=== PATIENT | male | born 1985 | race American Indian/Alaskan Native ===

== ENCOUNTER 2016-07-22 19:50 | Emergency (ER) | payer SELFPAY ==
--- NOTE | 2016-07-22 21:25 | Emergency Department Report ---
Chief Complaint: Abdominal Pain Stated Complaint: BOIL ON ABDOMEN Time Seen by Provider: 07/22/16 21:19 - HPI History of Present Illness: Patient presents with "bump" on his abdomen, present 2 days ago and getting larger. Admits to history of abscess on his abdomen in the past. Denies n/v/d , urinary symptoms. - ROS Review of Systems: All other systems unremarkable except documentation in HPI - Exam Vital Signs: Vital Signs 07/22/16 21:07 Temperature 98.7 F Pulse Rate 98 H Blood Pressure 111/77 O2 Sat by Pulse 98 Oximetry Physical Exam: Gen: Male no apparent distress noted, ambulatory. Cardiovascular: Heart sounds present S1-S2, no murmur, gallop, edema or ectopy noted, 2+ pulses upper and lower extremities Respiratory: Chest symmetry with respirations, lungs clear to auscultate upper and lower lobes, respirations even and unlabored, no rales, rhonchi, crackles noted. Abdomen: bowel sounds present, soft, nondistended, nontender, no rigidity, guarding or rebound tenderness Skin: Red, tender, abscess approximately 1 inch in diameter, nonfluctuant Psych: AxOx3, answers questions appropriately, mood full range, affect normal, normal speech and tone. MSE screening note: Focused history and physical exam performed. Due to findings the following was ordered: ED Medical Decision Making - Medical Decision Making Seen by provider, will go to fast track. ED Disposition for MSE Condition: Stable
--- NOTE | 2016-07-22 23:19 | Emergency Department Report ---
- General Chief complaint: Abdominal Pain Stated complaint: BOIL ON ABDOMEN Time Seen by Provider: 07/22/16 21:19 Source: patient, family Mode of arrival: Ambulatory Limitations: No Limitations - History of Present Illness Initial comments: Patient here for that he is in pain from boil on his stomach that has been there for 3 days. Denies any fever or chills. Pain 5 out of 10 only with touching. Denies any nausea vomiting or diarrhea. Denies any urinary burning frequency or urgency. No uine-ozp-xsoplns medication use. MD complaint: abscess/boil Onset/Timin -: days(s) Tetanus Up to Date: yes Severity: mild Severity scale (0 -10): 5 Quality: other (feels sore) Improves with: immobilization Worsens with: palpation Context: none, other (unknown) Associated symptoms: denies other symptoms Treatments Prior to Arrival: none - Related Data Previous Rx's Medication Instructions Recorded Last Taken Type Acetaminophen/Codeine [Tylenol #3] 1 tab PO Q8H PRN #12 tablet 07/23/16 Unknown Rx Sulfamethoxazole/Trimethoprim 1 each PO BID #20 tablet 07/23/16 Unknown Rx [Bactrim DS TAB] Allergies Allergy/AdvReac Type Severity Reaction Status Date / Time No Known Allergies Allergy Verified 07/22/16 21:06 Abscess Boil HPI - HPI Chief Complaint: Abdominal Pain Stated Complaint: BOIL ON ABDOMEN Time Seen by Provider: 07/22/16 21:19 Home Medications: Previous Rx's Medication Instructions Recorded Last Taken Type Acetaminophen/Codeine [Tylenol #3] 1 tab PO Q8H PRN #12 tablet 07/23/16 Unknown Rx Sulfamethoxazole/Trimethoprim 1 each PO BID #20 tablet 07/23/16 Unknown Rx [Bactrim DS TAB] Allergies/Adverse Reactions: Allergies Allergy/AdvReac Type Severity Reaction Status Date / Time No Known Allergies Allergy Verified 07/22/16 21:06 ED Review of Systems ROS: Stated complaint: BOIL ON ABDOMEN Other details as noted in HPI Comment: All other systems reviewed and negative Constitutional: denies: chills, fever Respiratory: no symptoms reported Cardiovascular: denies: chest pain, palpitations, edema, syncope Gastrointestinal: denies: abdominal pain, nausea, vomiting, diarrhea Genitourinary: denies: urgency, dysuria, frequency, hematuria, discharge, testicular pain, testicular mass Musculoskeletal: denies: back pain, arthralgia Skin: other (boil to abdomen) Neurological: denies: headache ED Past Medical Hx - Past Medical History Previous Medical History?: No - Surgical History Past Surgical History?: Yes Additional Surgical History: hernia removal - Family History Family history: no significant - Social History Smoking Status: Current Every Day Smoker Substance Use Type: Alcohol - Medications Home Medications: Home Medications Medication Instructions Recorded Confirmed Last Taken Type Acetaminophen/Codeine [Tylenol #3] 1 tab PO Q8H PRN #12 tablet 07/23/16 Unknown Rx Sulfamethoxazole/Trimethoprim 1 each PO BID #20 tablet 07/23/16 Unknown Rx [Bactrim DS TAB] ED Physical Exam - General Limitations: No Limitations General appearance: alert, in no apparent distress - Head Head exam: Present: atraumatic, normocephalic, normal inspection - Eye Eye exam: Present: normal appearance, PERRL, EOMI Pupils: Present: normal accommodation - Neck Neck exam: Present: normal inspection, full ROM. Absent: tenderness, meningismus, lymphadenopathy - Respiratory Respiratory exam: Present: normal lung sounds bilaterally. Absent: respiratory distress - Cardiovascular Cardiovascular Exam: Present: regular rate, normal rhythm, normal heart sounds - GI/Abdominal GI/Abdominal exam: Present: soft, tenderness (tenderness to palpate one by one area of erythema above the umbilicus), normal bowel sounds. Absent: distended, guarding, rebound, rigid - Extremities Exam Extremities exam: Present: normal inspection, full ROM, normal capillary refill. Absent: tenderness, pedal edema, joint swelling, calf tenderness - Neurological Exam Neurological exam: Present: alert, oriented X3, normal gait - Psychiatric Psychiatric exam: Present: normal affect, normal mood - Skin Skin exam: Present: warm, dry, erythema, other (cellulitis) - Expanded Skin Exam Expanded Type of lesion: Present: other (cellulitis) Distribution of rash: abdomen Description of rash: Present: size (1 cm x 1 cm), tenderness, erythematous, swelling, indurated. Absent: discharge, fluctuant ED Course Vital Signs 07/22/16 21:07 Temperature 98.7 F Pulse Rate 98 H Blood Pressure 111/77 O2 Sat by Pulse 98 Oximetry Vital Signs 07/22/16 07/23/16 07/23/16 21:07 00:11 00:12 Temperature 98.7 F 98.4 F Pulse Rate 98 H 70 Respiratory 18 18 Rate Blood Pressure 111/77 Blood Pressure 106/70 [Left] O2 Sat by Pulse 98 99 Oximetry 07/23/16 00:26 Temperature Pulse Rate 78 Respiratory 18 Rate Blood Pressure Blood Pressure 110/72 [Left] O2 Sat by Pulse 99 Oximetry - Reevaluation(s) Reevaluation #1: 07/23/16 00:04 She given [place] 5/325 2 tablets in the emergency room. ED Medical Decision Making - Medical Decision Making ED course: Discussed the patient that he has cellulitis to abdominal area and he will need to place warm compresses 3-4 times a day to facilitate soften and drainage. Discussed with him I will put him on Bactrim which is 3 at [facility] and he should take it as instructed. I instructed the patient if area of redness increases and no drainage after 3 days of being on the antibiotic to return to the emergency room for possible drainage. Patient voices understanding the discharge instruction. Discharged home with family would prescription for Motrin and Bactrim. Patient given [place] 5/325 mg 2 tablets in emergency room for pain. Critical care attestation.: If time is entered above; I have spent that time in minutes in the direct care of this critically ill patient, excluding procedure time. ED Disposition Clinical Impression: Cellulitis, abdominal wall Disposition: DISCHARGED TO HOME OR SELFCARE Is pt being admited?: No Does the pt Need Aspirin: No Condition: Stable Instructions: Cellulitis (ED) Additional Instructions: Apply warm compresses to affected area and abdomen 3-4 times a day. Take antibiotic as prescribed. Please return to the emergency room if you develop fever, increased redness. If the area is not draining by day 3 of 3 and an antibiotic he can return to the emergency room for possible incision and drainage. Prescriptions: Acetaminophen/Codeine [Tylenol #3] 1 tab PO Q8H PRN #12 tablet PRN Reason: Pain Sulfamethoxazole/Trimethoprim [Bactrim DS TAB] 1 each PO BID #20 tablet Referrals: [facility] [Outside] - 2-3 Days Forms: Work/School Release Form(ED), Accompanied Note
[2016-07-22] MEDS ORDERED: NORCO 5/325 PO ONE (23:59)
[2016-07-23 00:26] VITALS: BP 110/72
== END 2016-07-23 00:24 | disposition home or self-care (01) ==
LOC: ED 19:50
DX: L03.311 Cellulitis of abdominal wall (principal); F17.200 Nicotine dependence, unspecified, uncomplicated
CPT/HCPCS: 99282

== ENCOUNTER 2019-10-02 04:09 | Emergency (ER) | payer SELFPAY ==
[2019-10-02] MEDS ORDERED: IBUPROFEN 800 MG TAB PO ONE (07:52)
[2019-10-02 07:57] VITALS: BP 123/86
--- NOTE | 2019-10-02 07:57 | Emergency Department Report ---
ED ENT HPI - General Chief complaint: Dental/Oral Stated complaint: TOOTH PAIN Time Seen by Provider: 10/02/19 07:31 Source: patient Mode of arrival: Ambulatory Limitations: No Limitations - History of Present Illness Initial comments: This is a 34-year-old male nontoxic, well nourished in appearance, no acute signs of distress presents to the ED with c/o of left lower toothache 3 weeks. Patient denies following up with a dentist. Patient describes toothache as aching level of 8 out of 10. Patient denies any facial swelling. Patient denies any numbness, tingling, fever, chills, headache, stiff neck, abdominal pain, chest pain, shortness of breath. Patient denies any drug allergies or significant past medical history. MD complaint: tooth pain -: week(s) Location: tooth # 1 - pain here Severity: mild Severity scale (0 -10): 8 Quality: aching Consistency: constant Improves with: none Worsens with: none Associated Symptoms: toothache. denies: fever, cough, gum swelling, pain with swallowing, sore throat, tinnitus, hearing loss, discharge from ear, rhinorrhea - Related Data Previous Rx's Medication Instructions Recorded Last Taken Type Acetaminophen/Codeine [Tylenol #3] 1 tab PO Q8H PRN #12 tablet 07/23/16 Unknown Rx Sulfamethoxazole/Trimethoprim 1 each PO BID #20 tablet 07/23/16 Unknown Rx [Bactrim DS TAB] Cyclobenzaprine [Flexeril] 10 mg PO BID PRN #20 tablet 04/02/18 Unknown Rx Menthol/Camphor [Baker Fowler 1 applicatio TP TID PRN #1 tube 04/02/18 Unknown Rx Ointment] Naproxen [Naprosyn TAB] 500 mg PO BID PRN #30 tablet 04/02/18 Unknown Rx Allergies Allergy/AdvReac Type Severity Reaction Status Date / Time No Known Allergies Allergy Verified 10/02/19 04:17 ED Dental HPI - General Chief complaint: Dental/Oral Stated complaint: TOOTH PAIN Time Seen by Provider: 10/02/19 07:31 Source: patient Mode of arrival: Ambulatory Limitations: No Limitations - Related Data Previous Rx's Medication Instructions Recorded Last Taken Type Acetaminophen/Codeine [Tylenol #3] 1 tab PO Q8H PRN #12 tablet 07/23/16 Unknown Rx Sulfamethoxazole/Trimethoprim 1 each PO BID #20 tablet 07/23/16 Unknown Rx [Bactrim DS TAB] Cyclobenzaprine [Flexeril] 10 mg PO BID PRN #20 tablet 04/02/18 Unknown Rx Menthol/Camphor [Baker Fowler 1 applicatio TP TID PRN #1 tube 04/02/18 Unknown Rx Ointment] Naproxen [Naprosyn TAB] 500 mg PO BID PRN #30 tablet 04/02/18 Unknown Rx Allergies Allergy/AdvReac Type Severity Reaction Status Date / Time No Known Allergies Allergy Verified 10/02/19 04:17 ED Review of Systems ROS: Stated complaint: TOOTH PAIN Other details as noted in HPI Constitutional: denies: chills, fever Eyes: denies: eye pain, eye discharge, vision change ENT: dental pain. denies: ear pain, throat pain Respiratory: denies: cough, shortness of breath, wheezing Cardiovascular: denies: chest pain, palpitations Endocrine: no symptoms reported Gastrointestinal: denies: abdominal pain, nausea, diarrhea Genitourinary: denies: urgency, dysuria Musculoskeletal: denies: back pain, joint swelling, arthralgia Skin: denies: rash, lesions Neurological: denies: headache, weakness, paresthesias Psychiatric: denies: anxiety, depression Hematological/Lymphatic: denies: easy bleeding, easy bruising ED Past Medical Hx - Surgical History Additional Surgical History: hernia removal - Social History Smoking Status: Current Every Day Smoker Substance Use Type: None - Medications Home Medications: Home Medications Medication Instructions Recorded Confirmed Last Taken Type Acetaminophen/Codeine [Tylenol #3] 1 tab PO Q8H PRN #12 tablet 07/23/16 Unknown Rx Sulfamethoxazole/Trimethoprim 1 each PO BID #20 tablet 07/23/16 Unknown Rx [Bactrim DS TAB] Cyclobenzaprine [Flexeril] 10 mg PO BID PRN #20 tablet 04/02/18 Unknown Rx Menthol/Camphor [Baker Fowler 1 applicatio TP TID PRN #1 tube 04/02/18 Unknown Rx Ointment] Naproxen [Naprosyn TAB] 500 mg PO BID PRN #30 tablet 04/02/18 Unknown Rx ED Physical Exam - General Limitations: No Limitations General appearance: alert, in no apparent distress - Head Head exam: Present: atraumatic, normocephalic - Expanded ENT Exam Expanded Ear exam: Present: normal external inspection Mouth exam: Present: normal external inspection, tongue normal. Absent: selena oling, trismus, muffled voice Teeth exam: Present: dental caries, dental tenderness #. Absent: fractured tooth #, gingival enlargement Throat exam: Positive: normal inspection. Negative: tonsillar erythema, tonsillomegaly, tonsillar exudate, R peritonsillar mass, L peritonsillar mass - Neck Neck exam: Present: normal inspection, full ROM. Absent: tenderness, meningismus, lymphadenopathy - Extremities Exam Extremities exam: Present: normal inspection - Back Exam Back exam: Present: normal inspection - Neurological Exam Neurological exam: Present: alert, oriented X3, normal gait - Psychiatric Psychiatric exam: Present: normal affect, normal mood - Skin Skin exam: Present: warm, dry, intact, normal color. Absent: rash ED Course - Reevaluation(s) Reevaluation #1: 10/02/19 07:56 Patient is speaking in full sentences with no signs of distress noted. ED Medical Decision Making - Medical Decision Making Patient presents with a nonmedical emergency. Patient stable and was examined by me. Patient was referred to a dentist to follow-up. At time of discharge, the patient does not seem toxic or ill in appearance. No acute signs of distress noted. Patient agrees to discharge treatment plan of care. No further questions noted by the patient. Critical care attestation.: If time is entered above; I have spent that time in minutes in the direct care of this critically ill patient, excluding procedure time. ED Disposition Clinical Impression: Toothache Disposition: Z- MED SCREENING EXAM-LEFT Is pt being admited?: No Does the pt Need Aspirin: No Condition: Stable Instructions: Toothache (ED) Additional Instructions: Follow-up with a dentist doctor in 3-5 days or if symptoms worsen and continue return to emergency room as soon as possible. Referrals: LANETTE FOX MD [Primary Care Provider] - 3-5 Days LISA MONROY MD [Staff Physician] - 3-[address] [facility] [Outside] - 3-5 Days
== END 2019-10-02 08:04 | disposition left against medical advice (07) ==
LOC: ED 04:09
DX: K08.89 Other specified disorders of teeth and supporting structures (principal); F17.200 Nicotine dependence, unspecified, uncomplicated; Z98.890 Other specified postprocedural states; Z79.899 Other long term (current) drug therapy
CPT/HCPCS: 99282